=== PATIENT | male | born 1995 | race Two or more races ===

== ENCOUNTER 2017-12-01 22:42 | Emergency (ER) | payer BC ==
[2017-12-01 22:58] VITALS: BP 107/66; PULSE 62; RESP 20; TEMP 97.7; O2SAT 100
[2017-12-01 23:40] LABS: HEMOGLOBIN 15.7 g/dL (12.0-18.0); MEAN CELL VOLUME 84.1 fl (80.0-94.0); MEAN CORPUSCULAR HEMOGLOBIN 29.2 pg (27.0-31.0); MEAN CORPUSCULAR HGB CONC 34.7 g/dL (33.0-37.0); RBC 5.38 Mil/uL (4.40-5.90); RED CELL DISTRIBUTION WIDTH 12.9 % (11.5-14.5); WHITE BLOOD COUNT 7.9 K/uL (4.8-10.8)
--- NOTE | 2017-12-01 23:44 | ED PDOC ---
HPI:Nausea, Vomiting, Diarrhea Time Seen by Provider: 12/01/17 23:01 Chief Complaint (Nursing): Abdominal Pain Chief Complaint (Provider): Nausea History Per: Patient Onset/Duration Of Symptoms: Hrs Current Symptoms Are (Timing): Still Present Additional Complaint(s): No PMHx presenting with nausea, fatigue, sweats after vomiting earlier. States that around 730PM he ate a home-cooked burrito and consumed 3 tablets of "Alpha Brain" supplement. He then felt light-headed, dizzy, weak, sweaty, and vomited 3x, food-colored. No BM since the incident started. No fevers. No abdominal surgeries. No other medications. Denies abdominal pain. PMD: Dr. Donovan Past Medical History Reviewed: Historical Data, Nursing Documentation, Vital Signs Vital Signs: Last Vital Signs Temp 97.7 F 12/01/17 22:56 Pulse 62 12/01/17 22:56 Resp 20 12/01/17 22:56 BP 107/66 12/01/17 22:56 Pulse Ox 100 12/01/17 22:56 - Medical History PMH: No Chronic Diseases - Surgical History Surgical History: No Surg Hx - Family History Family History: States: Unknown Family Hx - Allergies Allergies/Adverse Reactions: Allergies Allergy/AdvReac Type Severity Reaction Status Date / Time No Known Allergies Allergy Verified 12/01/17 22:56 Review of Systems ROS Statement: Except As Marked, All Systems Reviewed And Found Negative Constitutional: Positive for: Chills, Sweats Gastrointestinal: Positive for: Nausea, Vomiting. Negative for: Abdominal Pain Physical Exam - Reviewed Nursing Documentation Reviewed: Yes Vital Signs Reviewed: Yes - Physical Exam Appears: Positive for: Well, Non-toxic, No Acute Distress Head Exam: Positive for: ATRAUMATIC, NORMAL INSPECTION, NORMOCEPHALIC Skin: Positive for: Normal Color, Warm, DRY Eye Exam: Positive for: EOMI, Normal appearance, PERRL ENT: Positive for: Normal ENT Inspection Neck: Positive for: Normal, Painless ROM Cardiovascular/Chest: Positive for: Regular Rate, Rhythm Respiratory: Positive for: CNT, Normal Breath Sounds Gastrointestinal/Abdominal: Positive for: Normal Exam, Soft. Negative for: Tenderness Back: Positive for: Normal Inspection Extremity: Positive for: Normal ROM Neurologic/Psych: Positive for: Alert, Oriented - Laboratory Results Result Diagrams: 12/01/17 23:38 12/01/17 23:38 - ECG O2 Sat by Pulse Oximetry: 100 Pulse Ox Interpretation: Normal Medical Decision Making Medical Decision Making: Well appearing 22y/o M presenting with nausea and vomiting after food and medication intake -well appearing, normal vitals, normal exam -possibly side effect of medication or mild GE -will check basic labs, give zofran PO -encouraged patient to stop using medication as it is indicated that there are side effects (See below) From website of supplement: Although, Alpha GPC is both safe and well tolerated in healthy adults, side effects have been reported. Users have occasionally experienced headaches, fatigue, nervousness, nausea, diarrhea and gastrointestinal distress; also, this supplement can result in dizziness and low blood pressure in some individuals. If you know, you are prone to hypotension you should consult a medical professional before taking Alpha GPC. Adverse side effects may occur more commonly among users taking high dosages. 0030 After medications patient felt much better. Tolerated PO. Advised cessation of supplements and advised followup with PMD. Disposition - Clinical Impression Clinical Impression: Medication side effect - Disposition Referrals: Lance Donovan MD [Primary Care Provider] - Disposition: Routine/Home Disposition Time: 00:30 Condition: STABLE Instructions: Side Effects From Medicines Forms: [employer] (Armenian)
[2017-12-01 23:49] LABS: ALB/GLOB RATIO 1.6 (1.0-2.1); ALBUMIN 4.7 g/dL (3.5-5.0); ALT/SGPT 32 U/L (21-72); AST/SGOT 24 U/L (17-59); BLOOD UREA NITROGEN 26 mg/dl (9-20); CALCIUM 9.8 mg/dL (8.4-10.2); GFR NON-AFRICAN AMERICAN > 60
== END 2017-12-02 00:49 | disposition home or self-care (01) ==
LOC: H.ER 22:42
DX: R11.0 Nausea (principal); R10.9 Unspecified abdominal pain; T88.7XXA Unspecified adverse effect of drug or medicament, initial encounter